=== PATIENT | male | born 1935 | race Caucasian/White ===

== ENCOUNTER 2019-03-20 08:16 | Day surgery (SDC) ==
--- NOTE | 2019-03-19 09:46 | EKG Report ---
Test Performed on : 03/19/2019 09:36:53 AM Test Reason : PAT Blood Pressure : / mmHG Vent. Rate : 080 BPM Atrial Rate : 080 BPM P-R Int : 208 ms QRS Dur : 086 ms QT Int : 398 ms P-R-T Axes : 101 -25 026 degrees QTc Int : 459 ms Normal sinus rhythm. Moderate voltage criteria for LVH, may be normal variant Borderline ECG No previous ECGs available Confirmed by Kayleigh SINCLAIR, Benedict ([id number]) on 03/19/2019 5:54:32 PM
[2019-03-19 09:58] LABS: HEMATOCRIT 40.8 % (42.0-52.0); HEMOGLOBIN 12.9 g/dL (14.0-18.0); MCH 29.1 PG (27-31); MCHC 31.6 g/dL (33-37); MCV 91.9 FL (81-99); MPV 10.5 FL (7.4-10.4); RBC 4.44 XMIL (4.7-6.1); RDW 13.8 % (11.5-14.5); WBC 12.47 X1000 (4.8-10.8)
[2019-03-19 10:30] LABS: AGAP 15; BUN 14 mg/dL (8-22); CALCIUM 9.5 mg/dL (8.8-10.2); CHLORIDE 104 mmol/L (98-107); COSMO 283; CREATININE 1.1 mg/dL (0.7-1.2); ESTIMATED GFR > 60; GLUCOSE 155 mg/dL (70-104); POTASSIUM 4.5 mmol/L (3.5-5.1); SODIUM 140 mmol/L (136-145); TCO2 21 mmol/L (25-35)
[2019-03-20] MEDS ORDERED: PEPCID ONE (08:28)
[2019-03-20] MEDS ORDERED: LR 1,000 ML ONE ×2 (08:29→12:22)
[2019-03-20] MEDS ORDERED: REGLAN ONE (08:29)
[2019-03-20] MEDS ORDERED: ZOSYN 3.375 GM in NS 50 ML IV ONE (08:40)
[2019-03-20] MEDS ORDERED: XYLOCAINE-MPF 2% ONE (09:03)
[2019-03-20] MEDS ORDERED: DIPRIVAN 1% ONE (09:03)
[2019-03-20] MEDS ORDERED: QUELICIN (DOSE) ONE (09:08)
[2019-03-20] MEDS ORDERED: ZOFRAN ONE (09:42)
[2019-03-20] MEDS ORDERED: DECADRON ONE (10:16)
[2019-03-20] MEDS ORDERED: NEOSTIGMINE ONE (10:25)
[2019-03-20] MEDS: DEMEROL ONE ×2 (11:56→12:06)
[2019-03-20] MEDS ORDERED: OXY IR PO PRN (13:15)
[2019-03-20] MEDS ORDERED: PYRIDIUM PO PRN (13:15)
[2019-03-20] MEDS ORDERED: ZOFRAN IV PRN ×2 (13:16→13:26)
[2019-03-20] MEDS ORDERED: LR 1,000 ML IV SCH (14:00)
[2019-03-20] MEDS: LABETALOL IV PRN ×2 (15:00→17:50)
[2019-03-20] MEDS ORDERED: DIFLUCAN 200 MG/NS 100 ML IV ONE (15:00)
[2019-03-20] MEDS: KEFZOL 1 GM/D5W 1 GM/50 ML IVPB IV SCH (17:53)
[2019-03-20] MEDS ORDERED: COLACE PO SCH (21:00)
[2019-03-20] MEDS ORDERED: PRAVACHOL PO SCH (21:00)
[2019-03-20] MEDS ORDERED: FLOMAX PO SCH (21:00)
[2019-03-20] MEDS ORDERED: HUMULIN N SUBQ SCH (21:00)
[2019-03-20] MEDS ORDERED: DETROL PO SCH (21:00)
[2019-03-20] MEDS: PERIDEX MT SCH (22:10)
--- NOTE | 2019-03-20 22:19 | OPERATIVE NOTE ---
PROCEDURE DATE: 03/20/2019 PREOPERATIVE DIAGNOSES: 1. Bladder mass. 2. Benign prostatic hypertrophy with urinary retention. 3. Bladder stones. POSTOPERATIVE DIAGNOSES: 1. Bladder mass. 2. Benign prostatic hypertrophy with urinary retention. 3. Bladder stones. PROCEDURE PERFORMED: 1. Cystoscopy with transurethral resection of bladder tumor 2 to 5 cm. 2. Cystolitholapaxy for stones less than 2 cm. SURGEON: Orlando Acosta MD SUPERVISOR IRRIGATION: None. COMPLICATIONS: None. ESTIMATED BLOOD LOSS: 25 mL. DRAINS: [address] SPECIMENS REMOVED: 1. Bladder stone. 2. Bladder neck mass. 3. Left lateral wall mass. ANESTHESIA: General endotracheal. INDICATIONS FOR PROCEDURE: Mr. Calhoun is an 83-year-old who presented to [facility]rology Clinic complaining of urinary retention. The patient had failed multiple voiding trials and underwent cystoscopy in the office, which showed a lesion on the left lateral wall of the bladder as well as a large prostate with a median lobe protruding into the base as well as several bladder stones seen in the posterior wall and a diverticulum. Due to these findings, I recommended treatment of his bladder lesion and removal of bladder stones to diagnose pathology and then to discuss further management of his BPH and urinary retention at a later date. We discussed risks of bleeding, infection, need for a postop catheterization, need for damage to surrounding structures, as well as secondary procedures. After a thorough discussion, patient elected to proceed. DESCRIPTION OF PROCEDURE: After informed consent was obtained, the patient was brought to the operating room, placed on the operating table in supine position. The patient received preoperative antibiotics and underwent general endotracheal intubation. He was then positioned in a dorsal lithotomy position and was prepped and draped in usual sterile fashion. A preoperative time-out was performed with all parties in agreement, including anesthesia, surgical, and nursing staff. At which point I inserted a 21-Sinhala cystourethroscope through the urethra into the bladder. The patient had a normal urethra with no evidence of any stricture disease or papillary lesions or narrowing. Once inside the prostate, patient's prostate measured approximately 60 g and had a large median lobe protruding into the base. Once in the bladder, the entirety of the bladder was inspected which was slightly erythematous with several trabeculations throughout as well as 2 diverticulum, one on the right and one on the left portion of the bladder. Within the left diverticulum, there were several bladder stones measuring approximately 1 to 1.5 cm in size. On the left lateral wall of the bladder, there was a papillary lesion measuring approximately 1.5 to 2 cm in size. Difficult to visualize the ureteral orifices initially due to the median lobe. I was able to use a 70-degree lens and able to see the right ureteral orifice with efflux of urine. Left ureteral orifice seemed to be obstructed. On further evaluation, this appeared to be a papillary lesion at the base of the bladder in between the left portion of the median lobe in the bladder neck. This was evaluated and seen to be quite large, measuring approximately 3 cm in size. No other papillary lesions were seen. A 30-degree lens was then reinserted and then using a 500 micron fiber was able to fragment the bladder stones, and these pieces were then removed and were fragmented and sent as a separate specimen. Once all these were removed, the decision was then made to perform a transurethral resection of bladder tumor. Our cystourethroscope was removed, and a 25-Sinhala resectoscope element was then advanced through the urethra and into the bladder with ease. Using the bipolar Olympus system, attention was placed to the bladder neck lesion. It was difficult to initially reach the left lateral wall due to the lesion at the base. The lesion was then systematically excised and seemed to go from the median lobe all the way up the lateral portion of the bladder. This was systematically resected down to the base and the base was then cauterized. All the specimen was passed into the bladder and then retrieved. Following this, no obvious papillary lesions were seen. Attention was then placed to the left lateral wall and was able to excise this area completely and then the base on the lesion was cauterized. Small amount of bleeding was seen from the lesion itself, which again was cauterized with good hemostasis at which point all of this specimen was also retrieved and sent as a separate specimen. The patient's bladder was cycled multiple times, and a small amount of bleeding was seen at the bladder neck near the median lobe, and this was cauterized as well. The patient's bladder was left full, and a 20-Sinhala 3-way catheter was inserted into the bladder, inflated with 30 mL of sterile water and placed to drainage. A small amount of continuous irrigant was started through the catheter to ensure patency, and this was sent with him to recovery to be run out while on the floor. DISPOSITION: The patient will be admitted to the hospital overnight for observation and hopefully discharged tomorrow. The patient has been unable to void. After several failed voiding trials, the patient will be discharged with indwelling catheter. cc: Orlando Acosta MD MTDJenni
[2019-03-21] MEDS: KEFZOL 1 GM/D5W 1 GM/50 ML IVPB IV SCH (00:30)
[2019-03-21] MEDS ORDERED: MORPHINE IV PRN (03:56)
[2019-03-21 06:56] LABS: HEMATOCRIT 36.7 % (42.0-52.0); HEMOGLOBIN 11.6 g/dL (14.0-18.0); MCH 29.5 PG (27-31); MCHC 31.6 g/dL (33-37); MCV 93.4 FL (81-99); MPV 10.6 FL (7.4-10.4); RBC 3.93 XMIL (4.7-6.1); RDW 13.7 % (11.5-14.5); WBC 11.7 X1000 (4.8-10.8)
[2019-03-21 08:02] VITALS: BP 153/69
[2019-03-21 08:04] LABS: AGAP 14; BUN 11 mg/dL (8-22); CALCIUM 9.5 mg/dL (8.8-10.2); CHLORIDE 104 mmol/L (98-107); COSMO 284; CREATININE 0.9 mg/dL (0.7-1.2); ESTIMATED GFR > 60; GLUCOSE 161 mg/dL (70-104); POTASSIUM 5.4 mmol/L (3.5-5.1); SODIUM 141 mmol/L (136-145); TCO2 23 mmol/L (25-35)
--- NOTE | 2019-03-21 08:17 | PROGRESS NOTE ---
DATE: 03/21/2019 SUBJECTIVE: Postoperative day 1 from transurethral resection of bladder tumor and cystolitholapaxy. The patient did well overnight. His catheter has drained clear yellow urine. The patient initially was on slow drip of CBI, which was weaned off. The patient denies any pain and no suprapubic or flank pain. The patient had good urinary output recorded with over 2 L from his catheter. OBJECTIVE: Vital signs: Temperature 98.1, heart rate 61, blood pressure 142/70, oxygen saturation 98% on room air. General: No acute distress, resting comfortably in bed, alert and oriented x3. Respiratory: Good respiratory effort without audible wheezing or rales. Abdomen: Soft, nontender, nondistended. : No suprapubic tenderness. No CVA tenderness. Urethral catheter in place draining clear yellow urine. SKIN: No lesions or rashes. LABORATORY: White blood count 11.7, hemoglobin 11.6, hematocrit 36.7, platelets 367. Sodium 138, potassium 5.2, chloride 103, bicarbonate 24, BUN 11, creatinine 1.0, glucose 169. ASSESSMENT AND PLAN: Mr. Calhoun is an 83-year-old who is postoperative cystoscopy with cystolitholapaxy and transurethral resection of bladder tumor. The patient has done well. His catheter is draining clear yellow urine. He has been to tolerating diet with minimal to no pain. I recommended capping the third port of his 3-way catheter and discharge him with his catheter due to his urinary retention. The patient has evidence of urethral erosion already. I encouraged him to monitor the catheter tension. Will plan to try to exchange the catheter at followup with plan to discuss pathology in approximately 2 weeks. Encouraged him to continue on his home medications. Will send him with some antibiotics and antifungals due to penile erythema from candidal infection. Will plan to discharge later today as long as he has an adequate morning. cc: Orlando Acosta MD [facility]
[2019-03-21] MEDS: PERIDEX MT SCH (08:56)
[2019-03-21] MEDS ORDERED: PRINIVIL PO SCH (09:00)
== END 2019-03-21 11:28 | disposition home or self-care (01) ==
LOC: 4N 08:16 → OR 08:16
PROVIDERS: ATTEND Urology

== ENCOUNTER 2019-04-07 11:24 | Day surgery (SDC) ==
[2019-04-07] MEDS ORDERED: PEPCID ONE (12:37)
[2019-04-07] MEDS ORDERED: REGLAN ONE (12:37)
[2019-04-07] MEDS ORDERED: LR 1,000 ML ONE ×2 (12:38→15:53)
[2019-04-07] MEDS ORDERED: KEFZOL 1 GM/D5W 2 GM/100 ML IVPB ONE (12:38)
[2019-04-07] MEDS ORDERED: QUELICIN (DOSE) ONE (12:43)
[2019-04-07] MEDS ORDERED: AMIDATE ONE (12:45)
[2019-04-07] MEDS ORDERED: XYLOCAINE-MPF 2% ONE (12:45)
[2019-04-07] MEDS ORDERED: FENTANYL ONE (12:46)
[2019-04-07] MEDS ORDERED: B & O 16A SUPP ONE (13:14)
[2019-04-07] MEDS ORDERED: ZEMURON ONE (14:00)
[2019-04-07] MEDS ORDERED: EPHEDRINE ONE (14:07)
[2019-04-07] MEDS ORDERED: DECADRON ONE (14:24)
[2019-04-07] MEDS ORDERED: ZOFRAN ONE (14:24)
[2019-04-07] MEDS ORDERED: NEO-SYNEPHRINE ONE (14:35)
[2019-04-07] MEDS ORDERED: ROBINUL ONE (14:55)
[2019-04-07] MEDS ORDERED: MORPHINE IV PRN (16:13)
[2019-04-07] MEDS ORDERED: LABETALOL IV PRN (16:15)
[2019-04-07] MEDS ORDERED: ZOFRAN IV PRN (16:15)
[2019-04-07] MEDS ORDERED: OXY IR PO PRN (16:15)
[2019-04-07] MEDS: NS 1,000 ML IV SCH (17:00)
[2019-04-07] MEDS ORDERED: FLOMAX PO SCH (21:00)
[2019-04-07] MEDS ORDERED: PRAVACHOL PO SCH (21:00)
--- NOTE | 2019-04-07 21:04 | OPERATIVE NOTE ---
PROCEDURE DATE: 04/07/2019 PREOPERATIVE DIAGNOSES: 1. Urinary retention. 2. Benign prostatic hypertrophy. 3. High grade bladder cancer. POSTOPERATIVE DIAGNOSES: 1. Urinary retention. 2. Benign prostatic hypertrophy. 3. High grade bladder cancer. PROCEDURE PERFORMED: 1. Cystoscopy. 2. Transurethral resection of bladder tumor greater than 2 cm. 3. Transurethral resection of prostate. SURGEON: Orlando Acosta MD. CROZER: None. COMPLICATIONS: None. BLOOD LOSS: 100 mL. ANESTHESIA: General. SPECIMENS REMOVED: 1. TURP specimen. 2. Bladder chips. INDICATIONS FOR PROCEDURE: Mr. Calhoun is an 83-year-old who presented to Urology Clinic with urinary retention and indwelling catheter. The patient failed several voiding trials and underwent cystoscopy in the office which showed an enlarged prostate measuring greater than 60 g, as well as a mass within the bladder itself. The patient had undergone transurethral resection of bladder tumor which showed high-grade superficial noninvasive cancer in 2 spots, both at the bladder neck as well as at the left lateral wall. The patient has continued to have urinary retention and indwelling catheter dependent. In talking with him, he desired a transurethral resection of the prostate and resection of bladder tumor. I discussed this with the patient today and he elected to proceed. DESCRIPTION OF PROCEDURE: After informed consent was obtained, the patient was brought to the operating room and placed on the operating table in supine position. Patient received preoperative antibiotics and underwent general endotracheal intubation. He was positioned into a dorsal lithotomy position and was prepped and draped in the usual sterile fashion. A preoperative time-out was performed with all parties in agreement, including anesthesia, surgical, and nursing staff. At which point I inserted a 21-Citizen [place] cystourethroscope through the urethra into the bladder. The patient's urethra was normal. The patient did have significant meatus erosion 1/[address] down the shaft, which was visualized at a prior procedure. The patient's prostate was enlarged with trilobar hypertrophy with a moderate-sized median lobe at the base of the bladder. The entirety of the bladder was inspected with no evidence of any bladder papillary lesions. Prior resection scar was seen in the left lateral wall. The patient had several diverticula laterally on each side of the bladder, with the largest being on the left side. The patient had previously had bladder stones in the diverticula and had undergone cystolitholapaxy at his most recent surgery. Once the entirety of the bladder was inspected, attention was then placed to performing our transurethral resection of prostate. The cystourethroscope was removed and a 26- Citizen [place] resectoscope element was advanced through the urethra into the bladder. I started at the median lobe. This was resected down to the capsule at the bladder neck and then carried toward the verumontanum. Once a good trough was performed, I began resecting the left lateral wall and carried this from the 6 o'clock position in the counter-clock position until the anterior lobe was visualized. It was carried all way to the verumontanum with a large amount of resection undertaken. Once this was completed, a similar procedure was done on the right side. Continued advancement into the bladder to ensure the ureteral orifices were far away from our resecting elements. Was able to resect all the way to the surgical capsule on both sides. The patient had enlarged prostate and TURP defect was widely patent at the end of the procedure. All the chips were irrigated out and then fulguration of any bleeding was seen. Several more areas were then resected to try to create a smooth trough to our TURP defect. Once the lateral and median lobes were resected, a moderate amount of the anterior lobe was then resected and retrieved. Once all the chips were retrieved from the bladder, attention was then placed to performing our TURBT. A lesion on the left lateral wall of the bladder was seen at the prior resection scar, and this was systematically resected through the bladder itself. Each of these chips was sent for analysis. The base of the lesion was then cauterized and no significant papillary changes were seen. Total surface area was greater than 2 cm in volume. Once this was completed, we went back to our prostate and cauterized any residual tissue, and this was completely hemostatic at the end of the procedure. The TURP defect, once the resectoscope was at the verumontanum, seemed to be widely patent, at which point the patient's bladder was left full and a good stream was obtained. A 22- Citizen [place] 3 way catheter was inserted and inflated with 30 mL of sterile water and placed to gravity drainage. Continuous bladder irrigation was started at a slow rate and continued throughout the procedure. The patient was then awoken and was taken to Recovery in stable condition. Sections were sent from bladder chips as well as our prostate chips, both sent separately for analysis. The patient will be admitted overnight for observation and discharged tomorrow with catheter if he does well. cc: Orlando Acosta MD MTDJenni
[2019-04-07] MEDS: COLACE PO SCH (22:25)
[2019-04-07] MEDS: KEFZOL 2 GM/D5W 2 GM/50 ML IVPB IV SCH (22:26)
[2019-04-07] MEDS: PERIDEX MT SCH (22:57)
[2019-04-08] MEDS: NS 1,000 ML IV SCH (02:05)
[2019-04-08] MEDS ORDERED: LR 1,000 ML IV SCH (05:00)
[2019-04-08] MEDS: KEFZOL 2 GM/D5W 2 GM/50 ML IVPB IV SCH ×2 (05:51→11:33)
[2019-04-08 07:52] LABS: HEMATOCRIT 39.4 % (42.0-52.0); HEMOGLOBIN 12.5 g/dL (14.0-18.0); MCHC 31.7 g/dL (33-37); MCV 91.4 FL (81-99); MPV 11.1 FL (7.4-10.4); RBC 4.31 XMIL (4.7-6.1); RDW 14.3 % (11.5-14.5); WBC 10.38 X1000 (4.8-10.8)
[2019-04-08 08:20] LABS: AGAP 13; BUN 13 mg/dL (8-22); CALCIUM 9.1 mg/dL (8.8-10.2); CHLORIDE 104 mmol/L (98-107); COSMO 284; CREATININE 0.9 mg/dL (0.7-1.2); ESTIMATED GFR > 60; GLUCOSE 173 mg/dL (70-104); POTASSIUM 5.1 mmol/L (3.5-5.1); SODIUM 140 mmol/L (136-145); TCO2 23 mmol/L (25-35)
--- NOTE | 2019-04-08 11:11 | PROGRESS NOTE ---
DATE: 04/08/2019 SUBJECTIVE: The patient is day one from cystoscopy and transurethral resection of bladder tumor and transurethral resection of prostate. The patient has been on continuous bladder irrigation overnight at a very slow drip. Catheter is draining light pink to clear this morning. Denies any leakage around the catheter. No suprapubic or flank pain. He is tolerating a diet. OBJECTIVE: Vital Signs: Temperature 97.9 degrees, heart rate 70, blood pressure 130/61, oxygen saturation is 97% on room air. General: No acute distress. Resting comfortably in bed. Alert and oriented x3. Respiratory: Good respiratory effort without audible wheezing or rales. Abdomen: Soft, nontender, nondistended. Genitourinary: No suprapubic tenderness. No CVA tenderness. Urethral catheter in place with irrigation off, draining thin, light pink. There are no clots present in the catheter tubing or bag. LABS: White blood cell count 10.4, hemoglobin 12.5, hematocrit 39.4. platelets 279,000. ASSESSMENT AND PLAN: Mr. Calhoun is an 83-year-old who is postoperative day 1 from cystoscopy with transurethral resection of prostate and transurethral resection with re- resection of bladder tumor. The patient overall has been doing well. Catheter irrigation was turned off overnight. He denies any irrigation of the catheter other than the continuous bladder irrigation. The patient denies any pain, any nausea or vomiting. He is tolerating oral intake. The patient remains on his oral medications, his home medications. Continue on perioperative antibiotics. Overall, patient seems to be doing well. Encouraged him to be ambulatory this morning. I would plan for him to be discharged home today and come back to the office tomorrow to have his catheter removed. Discussed this with the patient. He is in agreement. If the patient has any issues today, we will observe and take his catheter out tomorrow in the hospital. Overall, I think patient is doing well. We will have him come back for a followup appointment regarding pathology and further management of his high-grade bladder cancer. cc: Orlando Acosta MD [facility]
[2019-04-08 11:23] VITALS: BP 172/59
[2019-04-08] MEDS: PERIDEX MT SCH (11:34)
[2019-04-08] MEDS: COLACE PO SCH (11:34)
== END 2019-04-08 13:30 | disposition home or self-care (01) ==
LOC: 4N 11:24 → OR 11:24
PROVIDERS: ATTEND Urology
PROC: UR.TURP (2019-04-07 13:24)